=== PATIENT | female | born 1995 | race Caucasian/White ===

== ENCOUNTER 2016-09-18 15:12 | Emergency (ER) | payer SELFPAY ==
[2016-09-18 15:16] VITALS: BP 137/69; PULSE 91; TEMP 98.5; BMI 36.6
--- NOTE | 2016-09-18 16:46 | PDOC ---
History of Present Illness - General History Source: Patient Exam Limitations: No Limitations - History of Present Illness Initial Comments: 09/18/16 16:49 Patient is a 21 year old female with a significant past medical history of hypothyroidism and strep throat who presents today with cough, runny nose and fever for 6 days. Patient states that her Tmax was 100.3 yesterday. She also reports chest congestion, throat pain and ear pain. 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 <Maria E Huitron - Last Filed: 09/18/16 16:49> <Bren Wood - Last Filed: 09/18/16 17:24> - General Chief Complaint: Sore Throat Stated Complaint: FEVER, THROAT PAIN Time Seen by Provider: 09/18/16 16:33 Past History <Maria E Huitron - Last Filed: 09/18/16 16:49> - Past Medical History Thyroid Disease: Yes (HYPO) - Immunization History Immunization Up to Date: Yes - Psycho/Social/Smoking Cessation Hx Anxiety: No Suicidal Ideation: No Smoking History: Never smoked Hx Alcohol Use: Yes Drug/Substance Use Hx: No Substance Use Type: None <Bren Wood - Last Filed: 09/18/16 17:24> - Past Medical History Allergies/Adverse Reactions: Allergies Allergy/AdvReac Type Severity Reaction Status Date / Time No Known Drug Allergies Allergy Verified 09/18/16 15:15 DANDER Allergy Mild Rash Uncoded 09/18/16 15:15 EGGS Allergy Mild Rash Uncoded 09/18/16 15:15 MILK Allergy Mild Rash Uncoded 09/18/16 15:15 POLLEN Allergy Mild Itching Uncoded 09/18/16 15:15 TUNA Allergy Mild Rash Uncoded 09/18/16 15:15 Home Medications: Ambulatory Orders Azithromycin 250 mg PO DAILY #6 tablet 09/18/16 Guanfacine HCl [Guanfacine HCl ER] 2 mg PO DAILY #10 tab.er.24h 09/18/16 Review of Systems - Review of Systems Able to Perform ROS?: Yes Comments:: 09/18/16 16:49 CONSTITUTIONAL: Present: fever Absent: no chills, no fatigue EYES: Absent: visual changes ENT: Present: ear pain, sore throat, runny nose CARDIOVASCULAR: Absent: chest pain, no palpitations RESPIRATORY: Present: chest congestion, cough Absent: no SOB GI: Absent: abdominal pain, no nausea, no vomiting, no constipation, no diarrhea GENITOURINARY: Absent: dysuria, no frequency, no hematuria MUSCULOSKELETAL: Absent: back pain, no arthralgia, no myalgia SKIN: Absent: rash <Maria E Huitron - Last Filed: 09/18/16 16:49> *Physical Exam - Vital Signs Last Vital Signs Temp Pulse Resp BP Pulse Ox 98.5 F 91 H 18 137/69 96 09/18/16 15:13 09/18/16 15:13 09/18/16 15:13 09/18/16 15:13 09/18/16 15:13 - Physical Exam Comments: 09/18/16 16:50 GENERAL: Well-appearing, well-nourished. No apparent distress. HEENT:(+)Bilateral cervical lymphadenopathy, TMs clear, Pharyngeal edema and erythema. Normocephalic, atraumatic. PERRL, EOM intact. CARDIOVASCULAR: Normal S1, S2. Regular rate and rhythm. PULMONARY: Clear to auscultation bilaterally. No rales, no rhonchi ABDOMEN: Soft, non-distended, non-tender. EXTREMITIES: Normal ROM in all four extremities. No gross deformities. SKIN: Warm, dry. No rash NEUROLOGICAL: No focal neurological deficits. <Maria E Huitron - Last Filed: 09/18/16 16:49> - Vital Signs Last Vital Signs Temp Pulse Resp BP Pulse Ox 98.5 F 91 H 18 137/69 96 09/18/16 15:13 09/18/16 15:13 09/18/16 15:13 09/18/16 15:13 09/18/16 15:13 <Bren Wood - Last Filed: 09/18/16 17:24> *DC/Admit/Observation/Transfer - Attestations Scribe Attestion: 09/18/16 16:53 Documentation prepared by TONA Balderas, acting as biomedical specialist for Bren Wood NP. <Maria E Huitron - Last Filed: 09/18/16 16:49> <Bren Wood - Last Filed: 09/18/16 17:24> Diagnosis at time of Disposition: Upper respiratory tract infection Qualifiers: URI type: unspecified URI Qualified Code(s): J06.9 - Acute upper respiratory infection, unspecified Pharyngitis Qualifiers: Pharyngitis/tonsillitis etiology: unspecified etiology Qualified Code(s): J02.9 - Acute pharyngitis, unspecified - Discharge Dispostion Disposition: HOME - Prescriptions Prescriptions: Azithromycin 250 mg PO DAILY #6 tablet Guanfacine HCl [Guanfacine HCl ER] 2 mg PO DAILY #10 tab.er.24h - Patient Instructions Printed Discharge Instructions: Acute Bronchitis Additional Instructions: drink plenty of fluids take azithromycin as prescribed, take guanifeisin as prescribed as needed for cough follow up with your doctor as soon as possible. - Post Discharge Activity Work/School Note: Back to Work
== END 2016-09-18 17:28 | disposition home or self-care (01) ==
LOC: JERFT 15:12
DX: J06.9 Acute upper respiratory infection, unspecified (principal); J02.9 Acute pharyngitis, unspecified; E03.9 Hypothyroidism, unspecified
CPT/HCPCS: 87070; 87077; 87430; 99281-25

== ENCOUNTER 2016-12-05 21:55 | Emergency (ER) | payer OTHER ==
[2016-12-05 22:13] VITALS: BP 150/75; PULSE 80; TEMP 98.5; BMI 37.8
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
[2016-12-05] MEDS ORDERED: METHOCARBAMOL 500 MG TABLET PO ONE (23:01)
[2016-12-05] MEDS ORDERED: KETOROLAC TROMETHAMINE 60 MG/2 ML VIAL IM ONE (23:01)
[2016-12-05] MEDS ORDERED: KETOROLAC TROMETHAMINE 60 MG/2 ML VIAL ONE (23:09)
[2016-12-05] MEDS ORDERED: METHOCARBAMOL 500 MG TABLET ONE (23:09)
== END 2016-12-05 23:33 | disposition home or self-care (01) ==
LOC: JER 21:55 → SUPCPDRO 21:55 → JER 23:33
PROC: 3E0233Z Introduction of Anti-inflammatory into Muscle, Percutaneous Approach (ICD-10-PCS; principal; 2016-12-05)
DX: S16.1XXA Strain of muscle, fascia and tendon at neck level, initial encounter (principal); S13.4XXA Sprain of ligaments of cervical spine, initial encounter; V89.2XXA Person injured in unspecified motor-vehicle accident, traffic, initial encounter; Y92.488 Other paved roadways as the place of occurrence of the external cause; Y93.89 Activity, other specified; Y99.9 Unspecified external cause status; F41.9 Anxiety disorder, unspecified; E03.9 Hypothyroidism, unspecified
CPT/HCPCS: 99281-25

== ENCOUNTER 2016-12-07 18:41 | Emergency (ER) | payer OTHER ==
[2016-12-07 18:49] VITALS: BP 131/93; PULSE 72; TEMP 97.7; BMI 36.0
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
[2016-12-07 21:09] LABS: BASOPHIL 0.6 % (0-2.0); EOSINOPHIL 3.3 % (0-4.5); MCH 28.9 pg (25.7-33.7); MCHC 32.2 g/dl (32.0-36.0); MEAN CELL VOLUME 89.5 fl (80-96); MEAN PLT VOLUME 10.6 fl (7.5-11.1); NEUTROPHILS 66.7 % (42.8-82.8); PLATELET COUNT 223 K/MM3 (134-434); RDW 13.9 % (11.6-15.6); WHITE BLOOD COUNT 11.2 K/mm3 (4.0-10.0)
[2016-12-07 21:16] LABS: URINE APPEARANCE CLEAR; URINE BILIRUBIN NEGATIVE (NEGATIVE); URINE BLOOD 3+ (NEGATIVE); URINE COLOR RED; URINE GLUCOSE (UA) NEGATIVE (NEGATIVE); URINE KETONE NEGATIVE (NEGATIVE); URINE NITRITE NEGATIVE (NEGATIVE); URINE UROBILINOGEN NEGATIVE mg/dL (0.2-1.0)
[2016-12-07 21:25] LABS: INR 1.14 (0.82-1.09); PROTHROMBIN TIME (PATIENT) 12.6 SEC (9.98-11.88)
[2016-12-07 21:29] LABS: URINE PROTEIN 1+ (NEGATIVE)
[2016-12-07 21:36] LABS: ALBUMIN 3.8 g/dl (3.4-5.0); ANION GAP 8 (8-16); BILIRUBIN,TOTAL 0.3 mg/dL (0.2-1.0); CALCIUM 8.8 mg/dL (8.5-10.1); CO2 26 mmol/L (21-32); CREATININE 0.7 mg/dL (0.55-1.02); GLUCOSE,RANDOM 85 mg/dL (74-106); SGOT/AST 14 U/L (15-37); SGPT/ALT 25 U/L (12-78); TOT PROT 7.6 g/dl (6.4-8.2)
[2016-12-07 21:37] LABS: ALK PHOS 89 U/L (45-117)
[2016-12-07 21:40] LABS: URINE BACTERIA RARE /hpf (NONE SEEN); URINE RBC 56 /hpf (0-3); URINE WBC 144 /hpf (3-5)
[2016-12-07] MEDS ORDERED: CEPHALEXIN MONOHYDRATE 500 MG CAPSULE (UD) PO ONE (22:17)
[2016-12-07] MEDS ORDERED: CEPHALEXIN MONOHYDRATE 250 MG CAPSULE (FP) ONE (22:22)
--- NOTE | 2016-12-07 22:41 | PDOC ---
Attending Attestation - Resident Resident Name: Israel Timmons - ED Attending Attestation I have performed the following: I have examined & evaluated the patient, The case was reviewed & discussed with the resident, I agree w/resident's findings & plan, Exceptions are as noted - HPI HPI: 12/07/16 22:38 21 yo F with h/o irregular periods, previously on depot, currently taking ocp. here with c/o vaginal bleeding. mild crampy abd pain. no flank pain. no f/c no n /v. bleeding heavier than normal period. with clots. no sob or lightheaded. - Physicial Exam PE: 12/07/16 22:39 awake alert lungs clear heart rrr no mrg. abd soft nd nt. ext wwp. skin warm and dry. alert oriented. gait normal - Medical Decision Making 12/07/16 22:40 plan r/o , anemia. motrin as needed for cramping. ua. ua positive for uti. us with right sided 4 cm cyst. pt nontender on exam. told to follow up with Dr Yin. letitia for pain. diagnosis, irregular menses, uti.
[2016-12-07 23:03] LABS: URINE LEUK ESTERASE TRACE (NEGATIVE)
== END 2016-12-07 22:55 | disposition home or self-care (01) ==
LOC: JER 18:41
DX: N83.201 Unspecified ovarian cyst, right side (principal); E03.9 Hypothyroidism, unspecified; F41.9 Anxiety disorder, unspecified
CPT/HCPCS: 36415; 76830-TC; 80053; 81003; 81015; 84703; 85025; 85610; 86850; 86900; 86901; 99283-25

== ENCOUNTER 2017-11-17 00:13 | Emergency (ER) | payer OTHER ==
[2017-11-17 01:46] VITALS: BP 132/80; PULSE 65; TEMP 97.8; BMI 34.3
[2017-11-17] MEDS ORDERED: BENZOCAINE/MENTH/CETYLPYRD CL 1 EACH LOZENGE MM PRN (02:03)
[2017-11-17] MEDS ORDERED: guaiFENesin 200 MG/10 ML 10 ML UNIT-DOSE CUPS PO ONE (02:03)
[2017-11-17] MEDS ORDERED: ALBUTEROL SO4 2.5/IPRATROPIUM 0.5 INH SOL 3 ML VIAL.NEB. NEB ONE ×3 (02:11→03:08)
[2017-11-17] MEDS ORDERED: NAPROXEN 250 MG TABLET (FP) PO ONE (02:14)
[2017-11-17] MEDS ORDERED: diphenhydrAMINE HCL 25 MG CAPSULE (FP) PO ONE ×2 (02:14→03:08)
--- NOTE | 2017-11-17 02:27 | PDOC ---
History of Present Illness - General History Source: Patient Exam Limitations: No Limitations - History of Present Illness Initial Comments: 11/17/17 02:23 22 y/o F with pMH of asthma came to hospital because of increase in sob and cough. Patient states that she has difficulty in breathing from 3-4 days but it has progressed slowly. She also reports non productive cough from 3-4 days which has also increased. Denies fever and chills. Denies sick contact. Also reports chest tenderness on both sides of sternum. Last asthma attack was 10 years ago. She also states ate some nuts and then develop rashes on her face. Denies palpitations. <Joe Robles - Last Filed: 11/17/17 03:58> <Cady Macdonald - Last Filed: 11/17/17 04:49> - General Chief Complaint: Shortness of Breath Stated Complaint: DIFFICULTY BREATHING Time Seen by Provider: 11/17/17 01:42 Past History - Past Medical History Asthma: Yes COPD: No Psychiatric Problems: Yes (anxiety) Thyroid Disease: Yes (HYPO) - Immunization History Immunization Up to Date: Yes - Suicide/Smoking/Psychosocial Hx Smoking History: Never smoked Have you smoked in the past 12 months: No Information on smoking cessation initiated: No Hx Alcohol Use: No Drug/Substance Use Hx: No Substance Use Type: None <Joe Robles - Last Filed: 11/17/17 03:58> <Cady Macdonald - Last Filed: 11/17/17 04:49> - Past Medical History Allergies/Adverse Reactions: Allergies Allergy/AdvReac Type Severity Reaction Status Date / Time shellfish derived Allergy Mild Hives Verified 11/17/17 01:43 No Known Drug Allergies Allergy Verified 11/17/17 01:43 DANDER Allergy Mild Rash Uncoded 12/07/16 18:49 EGGS Allergy Mild Rash Uncoded 12/07/16 18:49 MILK Allergy Mild Rash Uncoded 12/07/16 18:49 POLLEN Allergy Mild Itching Uncoded 12/07/16 18:49 TUNA Allergy Mild Rash Uncoded 12/07/16 18:49 Home Medications: Ambulatory Orders Cephalexin Monohydrate [Keflex -] 500 mg PO BID #13 capsule 12/07/16 Albuterol Sulfate Inhaler - [Ventolin Hfa Inhaler -] 1 - 2 inh PO Q4H #1 inhaler 11/17/17 Benzonatate [Tessalon Pearls -] 100 mg PO TID #30 capsule 11/17/17 Guaifenesin AC [Robitussin AC -] 5 ml PO TID #150 liquid MDD 15 11/17/17 Review of Systems - Review of Systems Constitutional: No: Chills, Fever Respiratory: Yes: Cough, Shortness of Breath, SOB at Rest. No: Wheezing, Productive cough, Hemoptysis Cardiac (ROS): No: Irregular Heart Rate, Lightheadedness, Palpitations, Chest Tightness ABD/GI: No: Abdominal Distended, Constipated, Nausea, Vomiting Musculoskeletal: No: Back Pain, Joint Swelling, Joint Stiffness Neurological: No: Headache, Numbness <Joe Robles - Last Filed: 11/17/17 03:58> *Physical Exam - Vital Signs Last Vital Signs Temp Pulse Resp BP Pulse Ox 97.8 F 65 22 132/80 99 11/17/17 01:44 11/17/17 01:44 11/17/17 01:44 11/17/17 01:44 11/17/17 01:44 <Joe Robles - Last Filed: 11/17/17 03:58> - Vital Signs Last Vital Signs Temp Pulse Resp BP Pulse Ox 97.8 F 65 22 132/80 99 11/17/17 01:44 11/17/17 01:44 11/17/17 01:44 11/17/17 01:44 11/17/17 01:44 <Cady Macdonald - Last Filed: 11/17/17 04:49> ED Treatment Course - ADDITIONAL ORDERS Additional order review: Laboratory Results 11/17/17 02:21 Urine HCG, Qual Negative - RADIOLOGY Radiology Studies Ordered: Category Date Time Status CHEST PA & LAT [RAD] Stat Radiology 11/17/17 01:42 Ordered <Cady Macdonald - Last Filed: 11/17/17 04:49> Medical Decision Making - Medical Decision Making 11/17/17 02:28 22 y/o F with pMH of asthma came to hospital because of increase in sob and cough. Patient states that she has difficulty in breathing from 3-4 days but it has progressed slowly. She also reports non productive cough from 3-4 days which has also increased. Denies fever and chills. Denies sick contact. Also reports chest tenderness on both sides of sternum. Last asthma attack was 10 years ago. She also states ate some nuts and then develop rashes on her face. Denies palpitations. we will get cxr, cbc. we lopez give her duoneb, benadryl, robutissin, naproxen 11/17/17 03:50 patinet feels better after meds. Discussed with Dr. macdonald we will dc her on albuterol, inhaled steroid and robutisin inhaler. <Joe Robles - Last Filed: 11/17/17 03:58> *DC/Admit/Observation/Transfer - Discharge Dispostion Decision to Admit order: No <Joe Robles - Last Filed: 11/17/17 03:58> <Cady Macdonald - Last Filed: 11/17/17 04:49> Diagnosis at time of Disposition: Bronchitis - Discharge Dispostion Disposition: HOME Condition at time of disposition: Stable - Prescriptions Prescriptions: Albuterol Sulfate Inhaler - [Ventolin Hfa Inhaler -] 1 - 2 inh PO Q4H #1 inhaler Benzonatate [Tessalon Pearls -] 100 mg PO TID #30 capsule Guaifenesin AC [Robitussin AC -] 5 ml PO TID #150 liquid MDD 15 - Referrals Referrals: Richard Vasquez MD [Primary Care Provider] - - Patient Instructions Printed Discharge Instructions: DI for Acute Bronchitis Additional Instructions: Take your meds as prescribed. If your cough and sob increases or you get fever go to nearest ER - Post Discharge Activity Forms/Work/School Notes: Back to Work
[2017-11-17] MEDS ORDERED: NAPROXEN 500 MG TABLET (FP) PO ONE (02:30)
[2017-11-17] MEDS ORDERED: NAPROXEN 500 MG TABLET (FP) ONE (03:08)
[2017-11-17] MEDS ORDERED: guaiFENesin 200 MG/10 ML 10 ML UNIT-DOSE CUPS ONE (03:08)
[2017-11-17] MEDS ORDERED: ACETAMINOPHEN WITH CODEINE 300MG/30MG TABLET PO ONE ×2 (03:13→03:17)
[2017-11-17] MEDS ORDERED: MOMETASONE FUROATE 220 MCG/IH INHALER IH SCH (03:15)
[2017-11-17] MEDS ORDERED: ACETAMINOPHEN WITH CODEINE 300MG/30MG TABLET ONE (03:19)
[2017-11-17] MEDS ORDERED: DEXAMETHASONE LIQUID 0.5 MG/5 ML 240 ML BULK BOTTLE PO ONE (03:28)
[2017-11-17] MEDS ORDERED: DEXAMETHASONE SOD PHOSPHATE 10 MG/1 ML VIAL ONE (03:34)
--- NOTE | 2017-11-17 03:38 | PDOC ---
Attending Attestation - Resident Resident Name: Joe Robles - ED Attending Attestation I have performed the following: I have examined & evaluated the patient, The case was reviewed & discussed with the resident, I agree w/resident's findings & plan - HPI HPI: 11/17/17 03:32 Pt comes with cough; states that she can't stop coughing. - Physicial Exam PE: 11/17/17 04:50 Pt has minimal patchy wheezing. She seems to have irritation in her throat thtat is causing her to cough so much. Pt will be treated with a combo of reymundo AC as well as lauryn healy. SHe will also be treated for her underlying baseline asthma with inhalers as well as steroids. Pt has fecial plethroa and ruptured capillaries in her face due to all the coughing. Afebrile. Regular rate heart. Lungs clear in the ER and pt has 100% pulsox. - Medical Decision Making 11/17/17 03:45 CXR normal. Pt will be sent home with lauryn healy and reymundo WALTON. She will be given a note for work
== END 2017-11-17 04:38 | disposition home or self-care (01) ==
LOC: JER 00:13
PROC: 3E0F7GC Introduction of Other Therapeutic Substance into Respiratory Tract, Via Natural or Artificial Opening (ICD-10-PCS; principal; 2017-11-17)
PROC: 3E0F7GC Introduction of Other Therapeutic Substance into Respiratory Tract, Via Natural or Artificial Opening (ICD-10-PCS; 2017-11-17)
DX: J40 Bronchitis, not specified as acute or chronic (principal); J45.909 Unspecified asthma, uncomplicated; E03.9 Hypothyroidism, unspecified; F41.9 Anxiety disorder, unspecified
CPT/HCPCS: 71046-TC-FY; 84703; 94640; 99281-25